=== PATIENT | male | born 1965 | race Caucasian/White ===

== ENCOUNTER 2024-04-06 08:57 | Day surgery (SDC) | payer OTHER ==
[~2024-04-06] VITALS: Ht 180.3 cm; Wt 136.4 kg
[~2024-04-06 08:57] MED LIST: IBLOOD GLUCOSE TEST STRIP 1 EA TEST VI PRN; LACTATED RINGER'S 1,000 ML IV SCH; LIDOCAINE HCL 1% 5 ML SDV INJ ONE
[2024-04-06] MEDS ORDERED: propofoL 200 MG/20 ML VIAL ONE ×2 (10:37→11:30)
[2024-04-06] MEDS ORDERED: LIDOCAINE HCL 2% 5 ML SDV ONE (10:37)
--- NOTE | 2024-04-06 11:14 | NUR ---
PT KATHARINA CALLED AND UPDATED THAT PT GOING BACK FOR SURGERY AT THIS TIME. SHE STATED NO FURTHER QUESTIONS OR NEEDS.
--- NOTE | 2024-04-06 11:58 | NUR ---
04/06/24 1158 Laureen Boyd 1140-PATIENT ARRIVED TO PACU ON 3L NC RR EVEN. PATIENT PLACED ON 2L NC REACTIVE TO VERBAL STIMULI. ABDOMEN ROUND AND FIRM. PATIENT TRYING TO REPOSITION SELF IN BED. BP'S TRYING TO TAKE ON LEFT ARM MULTIPLE TIMES. SR. IVF INFUSING. 1150-PATIENT AWAKE REPOSITIONING SELF IN BED REPORTS " IT HURTS DON'T POKE IT" WHEN RN ASSESSES ABDOMEN PATIENT TURNED TO RIGHT SIDE. 1153-PATIENT PASSING GAS LAYING ON LEFT SIDE REPORTS "FEELS BETTER" 1157-DR. WEBSTER AT BEDSIDE TALKING TO PATIENT. PATIENT PASSING GAS LAYING ON LEFT SIDE 2L NC 96% RR EVEN.
[2024-04-06 12:17] VITALS: BP 156/95
--- NOTE | 2024-04-07 11:05 | OR ---
[facility] [address] [place], [place] [address] Signed DATE OF OPERATION: 04/06/2024 SURGEON: Cristofer Webster MD PREOPERATIVE DIAGNOSIS: Family history of colon cancer (father). POSTOPERATIVE DIAGNOSIS: Normal colon to cecum. PROCEDURE: Total colonoscopy to cecum. ANESTHESIA: Intravenous sedation; propofol, Makenna Zuniga CRNA. INDICATION: This 59-year-old white man is a patient of Dr. Petra Olson. He is known to me from the past having undergone total thyroidectomy for symptomatic goiter. He also underwent colonoscopy by me in 2012, which was normal. He has family history of colon cancer in his father. His sister has had polyps. He is admitted at this time to undergo screening colonoscopy. He understands the risk of bleeding, infection, and perforation. FINDINGS: The prep was excellent. Complete colonoscopy was undertaken to the cecum without question. Full intubation of the cecum was accomplished. There was no sign of abnormality, specifically no polyps, diverticular formation, colitis, or cancer. DESCRIPTION OF PROCEDURE: The patient was brought to the surgical endoscopy suite and placed in the lateral decubitus position, given intravenous sedation to the point of slurred speech and nystagmus by the human factors ergonomist. Digital rectal examination was normal. An Olympus video colonoscope was passed in the rectum and manipulated throughout the colon ultimately intubating the cecum itself. The ileocecal valve and appendiceal orifice were normal. The scope was passed into the ileum, which was also normal. Scope was then withdrawn and examination throughout showed no sign of abnormality; specifically no polyps, diverticular formation, colitis, or cancer. Retroflexed view was normal. Scope was removed and the patient was taken to the recovery room in good condition. Electronically Signed By: CRISTOFER WEBSTER MD 04/07/24 1105 PATIENT NAME: BLANCA HESTER OPERATIVE REPORT DATE OF : 61 REPORT #: [id number] PHYSICIAN: CRISTOFER WEBSTER MD PCP: PETRA OLSON MD REPORT IS CONFIDENTIAL AND NOT TO BE RELEASED WITHOUT AUTHORIZATION [facility] [address] [place], [place] [address] Signed CONCLUDING DIAGNOSIS: Normal colon to cecum. PLAN: Recommend repeat colonoscopy in 5 years based on AGA recommendations for patients with first-degree family member with colon cancer. MD MICHELLE Devlin/MODL /[id number] cc: Petra Olson MD Copies: PETRA OLSON MD ~ Electronically Signed By: CRISTOFER WEBSTER MD 04/07/24 1105 PATIENT NAME: BLANCA HESTER OPERATIVE REPORT DATE OF : 61 REPORT #: [id number] PHYSICIAN: CRISTOFER WEBSTER MD PCP: PETRA OLSON MD REPORT IS CONFIDENTIAL AND NOT TO BE RELEASED WITHOUT AUTHORIZATION
== END 2024-04-06 12:25 | disposition home or self-care (01) ==
LOC: DS 08:57 → OPS 08:57 → DS 11:00 → OPS 12:00
PROVIDERS: ATTEND Surgery
PROC: 0DJD8ZZ Inspection of Lower Intestinal Tract, Via Natural or Artificial Opening Endoscopic (ICD-10-PCS; principal; 2024-04-06)
DX: Z12.11 Encounter for screening for malignant neoplasm of colon (principal); Z80.0 Family history of malignant neoplasm of digestive organs; Z83.719 Family history of colon polyps, unspecified; E66.01 Morbid (severe) obesity due to excess calories; Z68.41 Body mass index [BMI] 40.0-44.9, adult; Z90.89 Acquired absence of other organs
CPT/HCPCS: 00811; J2001; J2704; J7121

== ENCOUNTER 2025-07-26 09:12 | Emergency (ER) | payer OTHER ==
[~2025-07-26] VITALS: Ht 180.3 cm; Wt 145.7 kg
[~2025-07-26 09:12] MED LIST changes: +ADVIL200 M1 PO; +COZAAR25 MG PO; +DILTIAZEM ER60 MG PO; -IBLOOD GLUCOSE TEST STRIP 1 EA TEST VI PRN; -LACTATED RINGER'S 1,000 ML IV SCH; -LIDOCAINE HCL 1% 5 ML SDV INJ ONE; +SYNTHROID100 MCG PO
[2025-07-26] MEDS ORDERED: CHLORTHALIDONE25 MG PO (09:32)
[2025-07-26] MEDS ORDERED: SILDENAFIL CITR25 MG PO (09:40)
[2025-07-26] MEDS ORDERED: LOSARTAN POTAS100 MG PO (09:40)
[2025-07-26 09:46] LABS: BASOPHILS 0.9 % (0.2-1.2); EOSINOPHILS 0.4 % (0.8-7.0); LYMPHOCYTES 15.6 % (21.8-53.1); MCH 28.7 PG (25.7-32.2); MCHC 33.5 g/dL (32.3-36.5); MCV 85.7 fL (79.0-92.2); MONOCYTES 6.2 % (5.3-12.2); NEUTROPHILS 76.4 % (34.0-67.9); RBC 5.26 M/uL (4.63-6.08)
[2025-07-26 10:08] LABS: ALT (SGPT) 58.0 U/L (14-59); AST (SGOT) 24.0 U/L (15-37); GLOMERULAR FILTRATION RATE,EST 86.0 mL/min (>60); PROTEIN, TOTAL 8.3 g/dL (6.4-8.2); UREA NITROGEN 17.0 mg/dL (7-18)
[2025-07-26 10:40] VITALS: BP 111/69
== END 2025-07-26 10:40 | disposition home or self-care (01) ==
LOC: ED 09:12
PROVIDERS: Emergency Medicine
DX: K42.9 Umbilical hernia without obstruction or gangrene (principal); Z88.1 Allergy status to other antibiotic agents; Z79.899 Other long term (current) drug therapy
CPT/HCPCS: 36415; 74177; 80053; 85025; 99284-25; Q9967

== ENCOUNTER 2025-07-28 06:02 | Day surgery (SDC) | payer OTHER ==
[~2025-07-28] VITALS: Ht 180.3 cm; Wt 150.0 kg
[~2025-07-28 06:02] MED LIST changes: +CHLORTHALIDONE25 MG PO; +LACTATED RINGER'S 1,000 ML IV SCH; +LOSARTAN POTAS100 MG PO; +SILDENAFIL CITR25 MG PO
[2025-07-28 06:29] VITALS: BP 156/84
[2025-07-28] MEDS ORDERED: TYLENOL EXTRA500 MG PO (06:32)
[2025-07-28] MEDS ORDERED: ROCURONIUM BROMIDE 50 MG/5 ML SYR ONE (06:53)
[2025-07-28] MEDS ORDERED: LIDOCAINE HCL 2% 5 ML SDV ONE (06:53)
[2025-07-28] MEDS ORDERED: IBLOOD GLUCOSE TEST STRIP 1 EA TEST VI PRN ×2 (07:00→08:30)
[2025-07-28] MEDS ORDERED: LIDOCAINE HCL 1% 5 ML SDV INJ ONE (07:00)
[2025-07-28] MEDS ORDERED: fentaNYL citrate 100 MCG/2 ML VIAL ONE (07:13)
[2025-07-28] MEDS ORDERED: SUCCINYLCHOLINE IN 0.9% NACL 200 MG/10 ML SYRINGE ONE (07:15)
[2025-07-28] MEDS ORDERED: ACETAMINOPHEN 1,000 MG/100 ML VIAL ONE (07:19)
[2025-07-28] MEDS ORDERED: DEXAMETHASONE SOD PHOS 4 MG/ML VIAL ONE (07:20)
[2025-07-28] MEDS ORDERED: ENOXAPARIN SODIUM 40 MG/0.4 ML SYR SUB-Q SCH (07:30)
[2025-07-28] MEDS ORDERED: CEFAZOLIN SODIUM 3 GM in SODIUM CHLORIDE 0.9% 100 ML IV SCH (07:33)
--- NOTE | 2025-07-28 07:34 | NUR ---
0730 VERBAL ORDER TAKEN FROM DR ESCALONA FOR 3G ANCEF AND 20 MG LOVENOX SUBQ [employer] OFFICER TO OR. ORDERS PLACED IN [facility]
[2025-07-28] MEDS ORDERED: ENOXAPARIN SODIUM 40 MG/0.4 ML SYR SUB-Q ONE (08:15)
[2025-07-28] MEDS ORDERED: GLYCOPYRROLATE 1 MG/5 ML MDV ONE (08:26)
[2025-07-28] MEDS ORDERED: fentaNYL citrate 50 MCG/ML SDV IV PRN (08:30)
[2025-07-28] MEDS ORDERED: HYDROmorphone HCL 1 MG/ML SYR IV PRN (08:30)
[2025-07-28] MEDS ORDERED: SUGAMMADEX SODIUM 200 MG/2 ML ML ONE (08:30)
[2025-07-28] MEDS ORDERED: NALOXONE HCL 0.4 MG SYR IV PRN (08:30)
[2025-07-28] MEDS ORDERED: Ropivacaine HCl 0.5% 30 ML VIAL ONE (08:33)
--- NOTE | 2025-07-28 08:58 | NUR ---
07/28/25 0858 Laureen Boyd 0851-PATIENT ARRIVED TO PACU ON 6L MASK RR EVEN SEMI HERNANDEZ POSITION. PATIENT REACTIVE TO VERBAL STIMULI RAISING HANDS TO HEAD ORIENTED TO PACU. DRESSING INTACT ABDOMINAL BINDER IN PLACE. 0854-PATIENT REACHING FOR FACE OXYGEN MASK REMOVED. PATIENT WINCING EYES CLOSED. DENIES PAIN OR NAUSEA. RA 98% RR EVEN.
[2025-07-28] MEDS ORDERED: HYDROCODONE/ACETA 7.5/325 TAB PO PRN (09:30)
[2025-07-28 09:33] VITALS: BP 125/83
--- NOTE | 2025-07-28 09:45 | NUR ---
0930- PT ARRIVES TO DAY SURGERY VIA STRETCHER. BEDSDIE REPORT RECEIVED FROM HERMINIA. PT REPORTS PAIN IS 7/10 AND NO NAUSEA. PT REQUESTING ICE CHIPS, APPLE SAUCE AND CRACKERS. PAIN PILL PROVIDED PER REQUEST, SEE EMAR. SURICAL SITE ASSESSED AND IS CDI. PT HOB INCREASED PER REQUEST. PT EATING APPLE SAUCE AND SIPPING ON WATER. ALL QUESTIONS AND CONCERNS ANSWERED. PRESCRIPTION GIVEN TO OF PT PER PT REQUEST.
--- NOTE | 2025-07-28 10:17 | OR ---
[facility] [address] [place], [place] [address] Signed DATE OF OPERATION: 07/28/2025 SURGEON: Leyda Olmstead DO PREOPERATIVE DIAGNOSIS: Incarcerated umbilical hernia. POSTOPERATIVE DIAGNOSIS: Incarcerated umbilical hernia. PROCEDURE PERFORMED: Repair of incarcerated umbilical hernia. ANESTHESIA: General. ESTIMATED BLOOD LOSS: Minimal. DRAINS: None. COMPLICATIONS: None. DESCRIPTION OF PROCEDURE: The patient was brought to the operating room, placed in supine position. After induction of general endotracheal anesthesia, the abdomen was then sterilely shaved prepped and draped in usual fashion. Utilizing a curvilinear subumbilical incision, the skin was incised with a scalpel. Dissection continued down through the layers of subcutaneous tissue. Bleeding points were controlled with electrocautery. Dissection was then carried down to the anterior fascia. The defect was identified, incarcerated contents were identified and the sac was entered sharply. The incarcerated contents were then mobilized and excised with the Bovie cautery, passed off the field. The entire sac was elevated. The umbilicus was elevated. The defect was appreciated approximately 3 cm in length. The fascial margins were freshened and decision to close the defect was then made. The fascial defect was then closed with interrupted [id number] sutures of #1 Ethibond. This was completed apex to apex and a satisfactory repair was made. The entire region was then irrigated and dried. The umbilicus was then tacked back down to the anterior fascia with 2-0 Vicryl. Electronically Signed By: LEYDA OLMSTEAD DO 07/28/25 1017 PATIENT NAME: BLANCA HESTER OPERATIVE REPORT DATE OF : 61 REPORT #: [id number] PHYSICIAN: LEYDA OLMSTEAD DO PCP: PETRA MORAN MD REPORT IS CONFIDENTIAL AND NOT TO BE RELEASED WITHOUT AUTHORIZATION [address] [address] Signed Subcutaneous tissue was then closed with 3-0 Vicryl and skin was closed with 4-0 Monocryl in a subcuticular fashion. Dermabond dressing was applied. The patient tolerated the procedure well and to recovery room in satisfactory condition. DO ALYSSA Esquivel/SAÚL /[id number] Copies: ~ Electronically Signed By: LEYDA OLMSTEAD DO 07/28/25 1017 PATIENT NAME: BLANCA HESTER OPERATIVE REPORT DATE OF : 61 REPORT #: [id number] PHYSICIAN: LEYDA OLMSTEAD DO PCP: PETRA MORAN MD REPORT IS CONFIDENTIAL AND NOT TO BE RELEASED WITHOUT AUTHORIZATION
[2025-07-28 10:51] VITALS: BP 160/89
--- NOTE | 2025-07-28 10:52 | NUR ---
1045- PT RESTING IN BED. PT REQUESTING TO SIT UP AT SIDE OF BED AND RN ASSISTED. VITAL SIGNS OBTAINED. SURGICAL SITE ASSESSED. PT REQUESTING TO USE THE RESTROOM BUT FEELS "OFF". PT IS SALINE LOCKED AT THIS TIME.
--- NOTE | 2025-07-28 11:41 | NUR ---
1050- PT IS UP TO USE THE RESTROOM PT HAS A STEADY AND EVEN GAIT TO THE RESTROOM AND IS ABLE TO VOID 450ML OF CLEAR YELLOW URINE AND RETURN SAFELY BACK TO ROOM. 1110- DISCHARGE PAPERWORK GONE OVER. ALL QUESTIONS AND CONCERNS ANSWERED. PT TO GET DRESSED WITH WIFES ASSISTANCE PER HIS REQUEST. PT IS ABLE TO DO SO SAFELY. PT ALSO SLOWLY SIPPING ON COFFEE. 1130- PT IS DRESSED AND ABLE TO WALK TO HOSPITAL WHEELCHAIR. PT IS PROPELLED TO FRONT OF HOSPITAL. PT IS ABLE TO GET INTO VEHICLE SAFELY. ALL QUESTIONS AND CONCERNS ANSWERED.
[2025-07-28] MEDS ORDERED: SEVOFLURANE 250 ML BTL INH ONE (14:13)
--- NOTE | 2025-07-28 15:48 | EKG ---
[facility] [address] [facility] [place] [address] Signed Normal sinus rhythm Right bundle branch block Abnormal ECG When compared with ECG of 01-APR-2024 14:47, Right bundle branch block has replaced Incomplete right bundle branch block Confirmed by Rishi Snow MD () on 07/28/2025 3:47:42 PM Electronically Signed By: RISHI SNOW MD 07/28/25 1548 PATIENT NAME: KOBIFENGKenyaBLANCA Electrocardiogram DATE OF : 61 PHYSICIAN: RISHI SNOW MD REPORT #: [id number] REPORT IS CONFIDENTIAL AND NOT TO BE RELEASED WITHOUT AUTHORIZATION
--- NOTE | 2025-07-30 22:48 | PATH ---
[facility] [address] [facility] [place], [place] [address] Signed SPECIMEN(S): A CONTENTS OF HERNIA SAC, UMBILICAL SPECIMEN SOURCE: A. CONTENTS OF HERNIA SAC, UMBILICAL CLINICAL HISTORY: Incarcerated umbilical hernia FINAL PATHOLOGIC DIAGNOSIS: Contents of hernia sac: - Benign soft tissue with features consistent with clinical hernia sac. JVR MICROSCOPIC EXAMINATION: Histologic sections of all submitted blocks are examined by light microscopy. These findings, together with the gross examination, support the pathologic diagnosis. GROSS DESCRIPTION: The specimen, labeled and designated "Teri Brunson., contents of hernia sac," is received in formalin and consists of a 2.4 x 2 x 1.1 cm portion of yellow lobulated adipose tissue. There is scant amount of fibromembranous tissue present. There are no significant areas of hemorrhage or necrosis. There are no discrete masses. 50% of the specimen is submitted in cassette A1. AA (under the direct supervision of a pathologist) The Gross Description was prepared using a voice recognition system. The report was reviewed for accuracy; however, sound-alike word errors, addition and/or deletions may occur. If there is any question about this report, please contact Client Services. ADDITIONAL NOTES: Immunohistochemical and/or in situ hybridization studies if performed in this case included appropriate positive controls that reacted as expected. This test was developed and its performance characteristics determined by [facility]. It has not been cleared or approved by the U.S. Food and Drug Administration. The FDA has determined that such clearance or approval is not necessary. This test is used for clinical purposes. It should not be regarded as investigational or for research. [facility] is certified under the Clinical Laboratory Improvement PATIENT NAME: BLANCA BRUNSON PATHOLOGY DATE OF : 61 REPORT #: [id number] PHYSICIAN: [facility] PCP: PETRA MORAN MD REPORT IS CONFIDENTIAL AND NOT TO BE RELEASED WITHOUT AUTHORIZATION [facility] [address] [facility] [place] [address] Signed Amendments of 1988 (CLIA) as qualified to perform high complexity clinical laboratory testing. PERFORMING LABORATORY: Technical component was performed by [facility], [address] [place] [address] (CLIA# [id number]). Professional interpretation was performed by [facility] - [address] [place] [id number] (CLIA#: [id number]). Diagnostician: Segun Herring MD Pathologist Electronically Signed 07/30/2025 Copies: ~ PATIENT NAME: BLANCA BRUNSON PATHOLOGY DATE OF : 61 REPORT #: [id number] PHYSICIAN: [facility] PCP: PETRA MORAN MD REPORT IS CONFIDENTIAL AND NOT TO BE RELEASED WITHOUT AUTHORIZATION
== END 2025-07-28 11:30 | disposition home or self-care (01) ==
LOC: DS 06:02 → OPS 06:02 → DS 07:30 → OPS 07:30 → DS 11:30
PROVIDERS: ATTEND Surgery
PROC: 0WQF0ZZ Repair Abdominal Wall, Open Approach (ICD-10-PCS; principal; 2025-07-28 07:30)
DX: K42.0 Umbilical hernia with obstruction, without gangrene (principal); I10 Essential (primary) hypertension; Z88.1 Allergy status to other antibiotic agents; Z79.899 Other long term (current) drug therapy
CPT/HCPCS: 00750; 93005; 93010; A9270; J0131; J0330; J0688; J1100; J1650; J2003; J2405; J2704; J2795; J3010; J3490; J7121